=== PATIENT | female | born 1955 | race Caucasian/White ===

== ENCOUNTER 2016-11-23 11:44 | Emergency (ER) | payer BC ==
[~2016-11-23] VITALS: Ht 154.9 cm; Wt 78.0 kg
[2016-11-23] MEDS ORDERED: HYDROcodone/APAP 5/325 TABLET PO ONE (12:30)
[2016-11-23] MEDS ORDERED: AMLO10TA2 PO (12:38)
[2016-11-23] MEDS ORDERED: HYDROcodone/APAP 5/325 TABLET ONE (12:49)
[2016-11-23 14:40] VITALS: BP 105/66
== END 2016-11-23 14:56 | disposition home or self-care (01) ==
LOC: ED 12:35
DX: R51 Headache (principal); I10 Essential (primary) hypertension; Z88.2 Allergy status to sulfonamides
CPT/HCPCS: 93005; 99283